=== PATIENT | female | born 1970 | race Caucasian/White ===

== ENCOUNTER 2024-10-19 12:08 | Emergency (ER) | payer BC ==
[~2024-10-19] VITALS: Ht 162.6 cm; Wt 106.7 kg
[2024-10-19] MEDS: ketorolac trometh 30MG/ML vial 30 MG/ML VIAL IM ONE (15:28)
[2024-10-19] MEDS: acetaminophen 325mg tablet PO ONE (15:30)
[2024-10-19] MEDS ORDERED: TRAM50TA2 PO (16:03)
[2024-10-19] MEDS ORDERED: ONDA-243 PO (16:03)
[2024-10-19 16:20] VITALS: BP 140/74; PULSE 76; RESP 18; TEMP 97; O2SAT 96
== END 2024-10-19 16:26 | disposition home or self-care (01) ==
LOC: ER 12:10
DX: G89.29 Other chronic pain (principal); M54.9 Dorsalgia, unspecified; M54.32 Sciatica, left side; Z88.8 Allergy status to other drugs, medicaments and biological substances
CPT/HCPCS: 96372; 99283; J1885

== ENCOUNTER 2024-10-26 19:40 | Emergency (ER) | payer BC ==
[~2024-10-26] VITALS: Ht 162.6 cm; Wt 104.5 kg
[~2024-10-26 19:40] MED LIST: ONDA-243 PO; TRAM50TA2 PO
[2024-10-26] MEDS: LIDOcaine 5% patch TP STA (21:27)
[2024-10-26] MEDS: diazepam inj 5 MG/ML inj. IV STA (22:31)
[2024-10-26] MEDS: ketorolac trometh 15mg/ml vial 15 MG/ML ML IV ONE (22:33)
[2024-10-26] MEDS ORDERED: DIAZ-351 PO (23:09)
[2024-10-26 23:30] VITALS: BP 134/76; PULSE 93; RESP 22; TEMP 98.2; O2SAT 99
== END 2024-10-26 23:32 | disposition home or self-care (01) ==
LOC: ER 19:41
DX: G89.29 Other chronic pain (principal); M54.89 Other dorsalgia; F41.9 Anxiety disorder, unspecified; Z88.8 Allergy status to other drugs, medicaments and biological substances
CPT/HCPCS: 36415; 84443; 96374; 96375; 99284; J1885; J3360